=== PATIENT | female | born 1940 | race Caucasian/White ===

== ENCOUNTER 2019-10-13 10:33 | Inpatient (IN) ==
[2019-10-13] MEDS ORDERED: NS 1,000 ML IV ONE (11:03)
--- NOTE | 2019-10-13 11:05 | PROVIDER DOCUMENTATION ---
This chart was entered by Stephanie Sauceda Scribe, acting as scribe for Zeke Kaiser CRNP. HPI-General Adult - General Stated Complaint: Fall Time Seen by Provider: 10/13/19 10:38 Source: patient, EMS, skilled nursing records Allergies/Adverse Reactions: Patient Allergies Allergy/AdvReac Type Severity Reaction Status Date / Time cephalexin [From Keflex] Allergy Unknown Verified 10/13/19 11:03 Penicillins Allergy Unknown Verified 10/13/19 11:03 Home Medications: Home Medication List Medication Instructions Recorded Confirmed Last Taken Type Iron Polysaccharides Complex 2 cap PO BID 10/13/19 10/13/19 Unknown History [Iferex 150] Polyethylene Glycol 3350 [Miralax] 17 gm PO DAILY 10/13/19 10/13/19 10/13/19 07:00 History Sennosides [Senna] 1 tab PO DAILY 10/13/19 10/13/19 10/13/19 07:00 History Tretinoin/Emol 9/Skin Cleansr1 1 dose TOP BID 10/13/19 10/13/19 Unknown History [Tretin-X 0.025% Cream Comb Pck] - History of Present Illness -Gen Adult Nature of Presenting Problems: 78 y/o female presents to ED after fall onset this morning. EMS reports pt fell backwards from standing. Pt states she thinks she fell, but is unsure what happened. Pt has hx dementia and Parkinson's. Pt unsure if she hit her head or lost consciousness. Pt complains of R hip pain. Pt is alert and nontoxic. Location of Pain/Injury: reports: head, pelvis (Right hip). denies: none, face, mouth, neck, chest, upper extremity, hand(s), abdomen, back, genitalia, lower extremity, feet, upper body, lower body, generalized, other Pain Radiation: reports: no radiation. denies: arm(s), back, buttocks, chest, epigastric, feet, groin, jaw, flank (L), legs (lower), LLQ, LUQ, neck, periumbilical, flank (R), RLQ, RUQ, shoulder(s), scapula, scrotal, sternal notch, suprapubic, legs (upper), urethral, vaginal, other Quality of Pain: reports: aching. denies: cramping, pressure, tightness Severity: reports: moderate. denies: mild, severe Onset/Duration: reports: abrupt, this morning Timing: reports: still present. denies: improving, intermittent, getting worse Context/Activities at Onset: reports: light activity, recent trauma history. denies: none, moderate activity, vigorous activity, recent emotional stress, recent physical stress, possible bad food, cold exposure, eating, out of country travel, rest, sleep, sexual activity, other Modifying Factors: improves with: nothing Associated Symptoms: reports: headaches, joint pain (Right hip), syncope. denies: denies symptoms, anxiety, arm pain, back/neck pain, chest pain, constipation, cough, diaphoresis, diarrhea, dizziness, EENT symptoms, fatigue, fever/chills, genitourinary problems, heartburn, loss of appetite, malaise, muscle aches, sinus congestion/drainage, nausea, rash, seizure, shortness of breath, sensory/motor loss, pain with inspiration, swelling/mass in abdomen, vomiting, weakness, trouble walking, other Similar Symptoms Previously?: Yes Recently seen or treated by another doctor?: No Review of Systems - Adult - REVIEW OF SYSTEMS - ADULT Constitutional: reports: no symptoms reported Eyes: reports: no symptoms reported Ears, Nose, Mouth & Throat: reports: no symptoms reported Cardiovascular: reports: no symptoms reported Respiratory: reports: no symptoms reported Gastrointestinal: reports: no symptoms reported Genitourinary: reports: no symptoms reported Musculoskeletal: reports: see HPI, joint pain (Right hip). denies: back pain, muscle aches, neck pain Integumentary: reports: no symptoms reported Neurological: reports: see HPI, headache/migraines. denies: dizziness/vertigo, paresthesia, seizure, tremors Psychiatric: reports: no symptoms reported Past History - Adult - PAST MEDICAL HISTORY-ADULT Review of Records: reports: Old Records Reviewed, Nursing Assessment Review, Medications Reviewed, Social history reviewed & non-contributory. Major Childhood Illnesses: reports: denies history Cardiovascular: reports: A-Fib, hyperlipidemia Gastrointestinal: reports: GERD Neurological: reports: dementia, Parkinson's Other Conditions: reports: blindness - PRIOR SURGERIES/PROCEDURES Surgical/Procedure History: reports: hysterectomy, joint replacement (hip) - IMMUNIZATION STATUS Childhood Immunizations: See Nurse Assessment Flu Vaccine: See Nurse Assessment - FAMILY HISTORY Family History: reviewed, not pertinent - SOCIAL HISTORY Smoking: non-smoker Substance Use: none/never Alcohol Use Frequency: never Living Situation: family Physical Exam-General - PHYSICAL EXAM-ADULT Initial Vital Signs Reviewed: Yes - CONSTITUTIONAL General Appearance: alert, mild distress, thin, slow to respond. negative: anxious, obtunded, combative - EYES Eyes: PERRL/EOMI, pink conjunctivae. negative: conjuctival exudate, scleral icterus, subconjunctival hemorrhage - HEAD, EARS, NOSE, MOUTH & THROAT HENMT: normocephalic/atraumatic, moist mucous membranes. negative: angioedema, frontal tenderness, maxillary tenderness - NECK Neck: non-tender, full range of motion, supple, normal inspection - RESPIRATORY Respiratory: lungs clear, normal breath sounds - CARDIOVASCULAR Cardiovascular: normal peripheral pulses, regular rate, rhythm, no edema - GASTROINTESTINAL (ABDOMEN) Abdominal Exam: normal bowel sounds, non tender, soft - LYMPHATIC Lymphatic: no adenopathy - MUSCULOSKELETAL Back Exam: normal inspection, no CVA tenderness, no vertebral tenderness Extremity: tenderness (Right hip). negative: deformity, erythema, inflammation, swelling Peripheral Pulses: radial (R): 2+, radial (L): 2+ - SKIN Integumentary: normal color, normal turgor, warm/dry - NEUROLOGIC Neurologic: grossly normal, no motor/sensory deficits - PSYCHIATRIC Psych/Mental Status: oriented x 3. negative: anxious, paranoid, tearful Progress - PLAN OF CARE/RESULTS Progress/Plan/Lab Results: Vital Signs - 8 hr 10/13/19 10:38 Temperature 98.2 F Pulse Rate 74 Respiratory Rate 18 Blood Pressure 97/61 O2 Sat by Pulse Oximetry 96 Orders Category Date Time Status FSBS [Finger Stick Blood Sugar (ED)] DIRECTED Care 10/13/19 10:53 Completed [place] Cath Insertion ORDERED Care 10/13/19 11:51 Active Saline Loc NOW Care 10/13/19 10:53 Active CHEST-1 VIEW [RAD] Stat Exams 10/13/19 12:[address] HEAD/C-SPINE W/O CONTRAST [CT] Stat Exams 10/13/19 10:[address] LUMBAR SPINE W/O CONTRAST [CT] Stat Exams 10/13/19 10:[address] PELVIS W/O CONTRAST [CT] Stat Exams 10/13/19 10:57 Completed HIP W/PELVIS BILAT 2 VIEWS [RAD] Stat Exams 10/13/19 12:19 Ordered CBC WITH ELECTRONIC DIFF [HEME] Stat Lab 10/13/19 11:05 Completed CK PROFILE [SP CHEM] Stat Lab 10/13/19 11:05 Completed COMPREHENSIVE METABOLIC PANEL [CHEM] Stat Lab 10/13/19 11:05 Completed PROTIME WITH INR [COAG] Stat Lab 10/13/19 11:05 Completed PTT [COAG] Stat Lab 10/13/19 11:05 Completed TROPONIN T Stat Lab 10/13/19 11:05 Completed URINALYSIS W/POSS RFLX CULT [URINALYSIS] Stat Lab 10/13/19 10:54 Uncollected 0.9% Sodium Chloride Inj [Ns] 1,000 ml Med 10/13/19 11:03 Discontinued IV KVO mls/hr Morphine Med 10/13/19 11:51 Discontinued 2 mg IV NOW ONE Ondansetron [Zofran] Med 10/13/19 11:51 Discontinued 4 mg IV NOW ONE EKG [EKG] Stat Ther 10/13/19 10:53 Draft Laboratory Tests 10/13/19 10/13/19 10/13/19 11:05 11:05 11:05 WBC 7.49 RBC 4.20 Hgb 11.4 L Hct 36.9 L MCV 87.9 MCH 27.1 MCHC 30.9 L RDW Std Deviation 15.6 H Plt Count 330 MPV 9.0 Immature Gran % (Auto) 0.4 Neut % (Auto) 83.6 H Lymph % (Auto) 9.2 L [place] % (Auto) 5.9 Eos % (Auto) 0.5 Baso % (Auto) 0.4 Immature Gran # (Auto) 0.03 Neut # (Auto) 6.26 Lymph # (Auto) 0.69 L [place] # (Auto) 0.44 Eos # (Auto) 0.04 Baso # (Auto) 0.03 PT 13.1 INR 0.99 PTT (Actin FS) 30.4 Sodium 141 Potassium 4.6 Chloride 102 Carbon Dioxide 28 Anion Gap 11 BUN 18 Creatinine 0.8 Estimated GFR/1.73 m2 > 60 BUN/Creatinine Ratio 23 Glucose 98 POC Glucose Calculated Osmolality 283 Calcium 9.1 Total Bilirubin 0.19 L AST 16 ALT < 5 L Alkaline Phosphatase 143 H Creatine Kinase 51 Troponin T Total Protein 6.9 Albumin 3.9 Globulin 3.0 Albumin/Globulin Ratio 1.3 10/13/19 10/13/19 11:05 11:48 WBC RBC Hgb Hct MCV MCH MCHC RDW Std Deviation Plt Count MPV Immature Gran % (Auto) Neut % (Auto) Lymph % (Auto) [place] % (Auto) Eos % (Auto) Baso % (Auto) Immature Gran # (Auto) Neut # (Auto) Lymph # (Auto) [place] # (Auto) Eos # (Auto) Baso # (Auto) PT INR PTT (Actin FS) Sodium Potassium Chloride Carbon Dioxide Anion Gap BUN Creatinine Estimated GFR/1.73 m2 BUN/Creatinine Ratio Glucose POC Glucose 88 Calculated Osmolality Calcium Total Bilirubin AST ALT Alkaline Phosphatase Creatine Kinase Troponin T < 0.010 Total Protein Albumin Globulin Albumin/Globulin Ratio 1233- Dr. Newell at bedside for evaluation. Result Diagrams: 10/13/19 11:05 10/13/19 11:05 - EKG 1 Time of EKG reading by physician:: 11:47 EKG Read and Signed by:: Shireen Hyman EKG Interpretation (*Must complete 3 of following elements*): Abnormal Rate: 66 Rhythm: NSR [place]: normal QRS: other (septal infarct) VA Interval: normal ST Wave: non-specific ST changes - CT/MRI 1 CT Study: Cervical Spine, Head Impression: See EMR Report ([facility] - [address] [facility] [address] [place] [id number] [facility] - [address] [place] [address] Department of Imaging Patient: ADALID CHANEL Date: 10/13/19#: [id number] : 08/15/1941DM Status: PRE ERAcct#: [id number] Age/Sex: 78/FRoom/Bed: Loc: ED Ordering Physician: Zeke Kaiser Family Physician: Andrew Schaefer Reason for Procedure: Fall on blood thinners/hit head Signed EXAM: CT HEAD/C-SPINE W/O CONTRAST 10/13/2019 HISTORY: Fall on blood thinners/hit head TECHNIQUE: This exam was performed using automated exposure control, adjustment of mA or kV according to patient size, and/or use of iterative reconstruction technique. COMMENT: There is mild generalized cerebral atrophy. There is no evidence of mass effect, bleed, or abnormal extra-axial fluid collection. The visualized paranasal sinuses are clear. The calvarium is intact. Cervical spine: There may be fibrous union of the posterior elements of C1 with the spinous process of C2. There is degenerative disc disease at the C5-6 and C6-7 levels with uncovertebral arthropathy and anterior osteophytes. There is severe hypertrophic facet disease present on the right side at the C3-4 and C4-5 levels. No evidence of fracture or subluxation is present. IMPRESSION: No evidence of acute intracranial disease. Degenerative changes in the cervical spine as described. Electronical ly signed by Jeremy Acevedo 10/13/2019 11:38 AM 10/13/19 1138 Interpreting Physician: Jeremy Acevedo MD Dictated Date/Time: 10/13/19 1135 cc: Zeke Kaiser; Andrew Schaefer III, MD) 2 CT Study: Lumbar Spine Impression: See EMR Report (Patient: ADALID CHANEL Date: 10/13/19#: [id number] : 08/15/1941DM Status: [facility]#: [id number] Age/Sex: 78/FRoom/Bed: Loc: ED Ordering Physician: Zeke Kaiser Family Physician: Andrew Schaefer Reason for Procedure: Fall Signed EXAM: CT LUMBAR SPINE W/O CONTRAST 10/13/2019 HISTORY: Fall TECHNIQUE: This exam was performed using automated exposure control, adjustment of mA or kV according to patient size, and/or use of iterative reconstruction technique. COMMENT: There are no previous studies available for comparison. There is some subsidence of the upper endplate of the L2 vertebral body. This is of uncertain age. No evidence of retropulsed fragment is present and there is mild disc bulge at this level. There is also vacuum disc phenomenon at the L5-S1 level. There is no evidence of subluxation. At the L2-3 level there is no spinal or foraminal stenosis. There is mild disc bulge. At L3-4 there is mild disc bulge without evidence of spinal or foraminal stenosis. At L4-5 there is moderate disc bulge and ligamentum flavum hypertrophy inducing a mild degree of spinal stenosis. There is also severe facet arthropathy on the left at this level. At the L5-S1 level there is no evidence of spinal or foraminal stenosis. There is sclerosis in the left side of the vertebral body which is probably due to a bone island. IMPRESSION: Compression fracture of the upper endplate of L2 of uncertain age. No evidence of spinal stenosis at this level. Degenerative disc disease as described above with mild spinal stenosis at L4-5. Electronically signed by Jeremy Acevedo 10/13/2019 11:42 AM 10/13/19 1142 Interpreting Physician: Jeremy Acevedo MD Dictated Date/Time: 10/13/19 1138 cc: Zeke Kaiser; Andrew Schaefer III, MD) 3 CT Study: Pelvis Impression: See EMR Report ([facility] - [address] [place] [address] [address] [facility] - [address] [place] [address] Department of Imaging Patient: ADALID CHANEL Date: 10/13/19#: [id number] : 08/15/1941DM Status: REG ERAcct#: [id number] Age/Sex: 78/FRoom/Bed: Loc: ED Ordering Physician: Zeke Kaiser Family Physician: Andrew Schaefer Reason for Procedure: Fall with injury ___ Signed EXAM: CT PELVIS W/O CONTRAST 10/13/2019 HISTORY: Fall with injury TECHNIQUE: This exam was performed using automated exposure control, adjustment of mA or kV according to patient size, and/or use of iterative reconstruction technique. COMMENT: There are degenerative facet changes at the L4-5 level particularly on the left side and there is a bone island in the left side of L5. There is vacuum phenomenon at the L5-S1 disc space. There is an intertrochanteric fracture of the right femur. There is a comminuted fracture of the greater trochanter on the left. There is a soft tissue calcification in the left perineal region of uncertain significance. There is apparent constipation. IMPRESSION: Bilateral femoral fractures. Other nonacute findings as described above. Electronically signed by Jeremy Acevedo 10/13/2019 11:44 AM 10/13/19 1144 Interpreting Physician: Jeremy Acevedo MD Dictated Date/Time: 10/13/19 1142 cc: Zeke Kaiser; Andrew Schaefer III, MD) - CONSULTS/PCP/HOSPITALIST Notification #1 *Consult/PCP/Hospitalist*: Dr. Newell Time Discussed: 12:18 Reason/Comments: Consult Consult Disposition: Will see in ED, Admit (admit to hospitalist; order x-rays; Dr. Newell will fix tomorrow.) #2 Consult: Callie for hospitilist Time Discussed: 13:15 Reason/Comments: Admission Consult Disposition: Will see in ED, Admit Departure - Departure Date of Disposition Decision: 10/13/19 Time of Disposition Decision: 11:52 DIAGNOSIS: Bilateral femoral fractures Qualifiers: Encounter type: initial encounter Fracture type: closed Qualified Code(s): S72.91XA - Unspecified fracture of right femur, initial encounter for closed fracture Disposition: ADMITTED INPATIENT 09 Certified Medical Emergency: Emergent Condition: Stable Referrals and Follow-Ups: Andrew Schaefer III, MD [Primary Care Provider] - - Critical Care Note This patient required my direct & personal management of CC.: No Attestation - Physician/ TIFFANY Attestation Patient care was provided by Advanced Practice Provider:: Yes Advanced Practice Provider:: Zeke Kaiser Advanced Practice Provider documentation review:: The Mid-level provider documentation, treatment plan and medical decision making was reviewed by the physician who agrees with all treatment and medical decision making by the MLP. The physician spent face to face time with patient:: No Advanced Practice Provider documentation review:: Supervising physician onsite and consulted in the evaluation and care of this patient. The physician did not have a face to face encounter with the patient. This chart was documented by the indicated scribe, (Stephanie Sauceda Scribe) and accurately reflects the services I performed and decisions made by me, Zeke Kaiser CRNP, as attested by the provider's signature.
[2019-10-13 11:25] LABS: BASO# 0.03 X1000 (0.0-0.2); BASO% 0.4 % (0.0-0.8); EOS# 0.04 X1000 (0.0-0.7); EOS% 0.5 % (0.0-10.0); HEMATOCRIT 36.9 % (37.0-47.0); HEMOGLOBIN 11.4 g/dL (12.0-16.0); IMM GRAN# 0.03 X1000 (0.0-0.04); IMM GRAN% 0.4 % (0.0-0.5); LYMPH# 0.69 X1000 (1.2-3.4); LYMPH% 9.2 % (20.5-51.1); MCH 27.1 PG (27-31); MCHC 30.9 g/dL (33-37); MCV 87.9 FL (81-99); MONO# 0.44 X1000 (0.11-0.59); MONO% 5.9 % (1.7-9.3); NEUT# 6.26 X1000 (1.4-6.5); NEUT% 83.6 % (42.2-75.2); PLT 330 X1000 (130-400); RDW 15.6 % (11.5-14.5); WBC 7.49 X1000 (4.8-10.8)
[2019-10-13 11:29] LABS: INR 0.99; PROTIME 13.1 Seconds (11.0-16.0)
[2019-10-13 11:30] LABS: PTT 30.4 Seconds (22.3-41.8)
[2019-10-13 11:40] LABS: AGAP 11; ALB/GLOB RATIO 1.3; ALBUMIN 3.9 g/dL (3.5-5.0); ALKALINE PHOSPHATASE 143 U/L (32-104); BUN 18 mg/dL (8-22); CALCIUM 9.1 mg/dL (8.8-10.2); CHLORIDE 102 mmol/L (98-107); CK PROFILE 51 U/L (24-173); COSMO 283; CREATININE 0.8 mg/dL (0.5-0.9); ESTIMATED GFR > 60; GLUCOSE 98 mg/dL (70-104); GOT 16 U/L (10-30); GPT < 5 U/L (10-36); POTASSIUM 4.6 mmol/L (3.5-5.1); SODIUM 141 mmol/L (136-145); TCO2 28 mmol/L (25-35); TOTAL BILIRUBIN 0.19 mg/dL (0.20-1.00); TOTAL PROTEIN 6.9 g/dL (6.3-8.3)
--- NOTE | 2019-10-13 11:40 | Diag Imaging Result Doc PS360 ---
EXAM: CT HEAD/C-SPINE W/O CONTRAST 10/13/2019 HISTORY: Fall on blood thinners/hit head TECHNIQUE: This exam was performed using automated exposure control, adjustment of mA or kV according to patient size, and/or use of iterative reconstruction technique. COMMENT: There is mild generalized cerebral atrophy. There is no evidence of mass effect, bleed, or abnormal extra-axial fluid collection. The visualized paranasal sinuses are clear. The calvarium is intact. Cervical spine: There may be fibrous union of the posterior elements of C1 with the spinous process of C2. There is degenerative disc disease at the C5-6 and C6-7 levels with uncovertebral arthropathy and anterior osteophytes. There is severe hypertrophic facet disease present on the right side at the C3-4 and C4-5 levels. No evidence of fracture or subluxation is present. IMPRESSION: No evidence of acute intracranial disease. Degenerative changes in the cervical spine as described. Electronically signed by Jeremy Acevedo 10/13/2019 11:38 AM
--- NOTE | 2019-10-13 11:44 | Diag Imaging Result Doc PS360 ---
EXAM: CT LUMBAR SPINE W/O CONTRAST 10/13/2019 HISTORY: Fall TECHNIQUE: This exam was performed using automated exposure control, adjustment of mA or kV according to patient size, and/or use of iterative reconstruction technique. COMMENT: There are no previous studies available for comparison. There is some subsidence of the upper endplate of the L2 vertebral body. This is of uncertain age. No evidence of retropulsed fragment is present and there is mild disc bulge at this level. There is also vacuum disc phenomenon at the L5-S1 level. There is no evidence of subluxation. At the L2-3 level there is no spinal or foraminal stenosis. There is mild disc bulge. At L3-4 there is mild disc bulge without evidence of spinal or foraminal stenosis. At L4-5 there is moderate disc bulge and ligamentum flavum hypertrophy inducing a mild degree of spinal stenosis. There is also severe facet arthropathy on the left at this level. At the L5-S1 level there is no evidence of spinal or foraminal stenosis. There is sclerosis in the left side of the vertebral body which is probably due to a bone island. IMPRESSION: Compression fracture of the upper endplate of L2 of uncertain age. No evidence of spinal stenosis at this level. Degenerative disc disease as described above with mild spinal stenosis at L4-5. Electronically signed by Jeremy Acevedo 10/13/2019 11:42 AM
--- NOTE | 2019-10-13 11:46 | Diag Imaging Result Doc PS360 ---
EXAM: CT PELVIS W/O CONTRAST 10/13/2019 HISTORY: Fall with injury TECHNIQUE: This exam was performed using automated exposure control, adjustment of mA or kV according to patient size, and/or use of iterative reconstruction technique. COMMENT: There are degenerative facet changes at the L4-5 level particularly on the left side and there is a bone island in the left side of L5. There is vacuum phenomenon at the L5-S1 disc space. There is an intertrochanteric fracture of the right femur. There is a comminuted fracture of the greater trochanter on the left. There is a soft tissue calcification in the left perineal region of uncertain significance. There is apparent constipation. IMPRESSION: Bilateral femoral fractures. Other nonacute findings as described above. Electronically signed by Jeremy Acevedo 10/13/2019 11:44 AM
[2019-10-13] MEDS ORDERED: ZOFRAN IV ONE (11:51)
[2019-10-13] MEDS ORDERED: MORPHINE IV ONE (11:51)
--- NOTE | 2019-10-13 12:00 | EKG Report ---
Test Performed on : 10/13/2019 11:44:51 AM Test Reason : syncope Blood Pressure : / mmHG Vent. Rate : 066 BPM Atrial Rate : 066 BPM P-R Int : 144 ms QRS Dur : 074 ms QT Int : 412 ms P-R-T Axes : 055 -02 064 degrees QTc Int : 431 ms Normal sinus rhythm. Septal infarct , age undetermined Abnormal ECG No previous ECGs available Unconfirmed Result
[2019-10-13] MEDS ORDERED: TYLENOL PO PRN (12:59)
[2019-10-13] MEDS ORDERED: ZOFRAN IV PRN (12:59)
[2019-10-13] MEDS ORDERED: NORCO-7.5 PO PRN (12:59)
[2019-10-13] MEDS ORDERED: MORPHINE IV PRN ×2 (12:59→18:32)
--- NOTE | 2019-10-13 13:12 | Diag Imaging Result Doc PS360 ---
EXAM: HIP W/PELVIS BILAT 2 VIEWS 10/13/2019 HISTORY: Dr. Newell request TECHNIQUE: Left hip and AP pelvis three views COMMENT: There is a comminuted fracture of the left greater trochanter and intertrochanteric fracture of the right femur. There is a calcification in the left labia majora. IMPRESSION: Bilateral femoral fractures as described. Electronically signed by Jeremy Acevedo 10/13/2019 1:10 PM
--- NOTE | 2019-10-13 13:12 | Diag Imaging Result Doc PS360 ---
EXAM: CHEST-1 VIEW 10/13/2019 HISTORY: admit TECHNIQUE: AP chest COMMENT: There is no evidence of acute cardiac or pulmonary disease. There are no previous studies. IMPRESSION: No acute disease. Electronically signed by Jeremy Acevedo 10/13/2019 1:10 PM
[2019-10-13] MEDS: NS 1,000 ML IV SCH (13:29)
--- NOTE | 2019-10-13 13:29 | ORTHOPAEDICS CONSULTATION ---
DATE: 10/13/2019 REASON FOR CONSULTATION: Bilateral hip pain after fall. HISTORY OF PRESENT ILLNESS: Ms. Cazares is an 78-year-old female with a history of dementia, Parkinson's, and rheumatoid arthritis who had a fall in the alf sometime early this morning. She does have dementia and is not a good historian. She states she cannot remember how she fell or what the circumstances were. She does not remember losing consciousness or feeling dizzy. She does not recall hitting her head. She was found quickly after her fall from what she remembers. After her fall, she was brought to the [facility] Emergency Room. A CT of the pelvis revealed a right intertrochanteric fracture and a left comminuted fracture of the greater trochanter. Orthopedics has been consulted for management of the bilateral femoral fractures. PAST MEDICAL HISTORY: Again, the patient is not a good historian, but she does have a family member at the bedside. 1. Parkinson's. 2. Lewy body dementia. 3. Rheumatoid arthritis. PAST SURGICAL HISTORY: None. HOME MEDICATIONS: A home medication list has not been reconciled. The patient and family member both deny any blood thinners. We are waiting on a list to come over from the alf. ALLERGIES: 1. Cephalexin. 2. Penicillins. REVIEW OF SYSTEMS: A 10 point review of systems was difficult to complete. She has dementia but currently she is only complaining of the bilateral hip pain. SOCIAL HISTORY: She does live in a detention facility. She denies tobacco, alcohol, or illicit drug use. PHYSICAL EXAMINATION: Current Vital Signs: Her temperature is 98 degrees, her pulse is 67, respirations are 20, blood pressure is 124/77, and she is 96% on room air. General: This is a frail appearing 78-year-old female in no acute distress. Neurological: She is answering some questions appropriately, she is unable answer others. She is alert to self and location. She has no obvious focal deficits. HEENT: Head is atraumatic, normocephalic. Pupils are equal, round, reactive to light. Cardiovascular: Regular rate and rhythm. No edema to extremities. Pulmonary: Breathing is even unlabored with equal chest rise and expansion. Abdomen: Nondistended. Nontender. Extremities: The right lower extremity is shortened and externally rotated. She does have some tenderness to palpation over the hip. She has pain when she tries to move the hip. She has good sensation to the foot. She has a 2+ pedal pulse. There are no skin ulcerations or abrasions. Left lower extremity exam she does have some tenderness to palpation over the greater trochanter on this side. She is able to move the hip a little easier on that side. She has good sensation lower extremity 2+ pedal pulse. No skin ulcerations or abrasions. Right upper extremity exam, she has no tenderness to palpation, but she does have a small skin tear with ecchymosis to the right elbow. Denies tenderness to palpation to any other extremity. IMAGING: A pelvis CT reviewed and interpreted by Dr. Newell does reveal a right intertrochanteric femur fracture. On the left side she does have a comminuted but nondisplaced fracture of the greater trochanter. LABORATORY DATA: Her white count 7.49, hemoglobin and hematocrit 11.4, 36.9, platelet count is 330,000. Her INR is 0.99. Her BUN and creatinine is 18 and 0.8. ASSESSMENT: 1. Right intertrochanteric femur fracture. 2. Left greater trochanter fracture, nondisplaced. PLAN: The left greater trochanter fracture can be treated nonoperatively. As far as this right side, we will need to pursue surgical intervention. We will plan for a right trochanteric femoral nailing. She did eat breakfast this morning. As far as we can tell, she is not on any blood thinners but we are waiting for a list from the alf. As long as we find she is not on any blood thinners and there is no medical need to delay surgery, we will plan on doing this tomorrow morning. We will make her NPO at midnight. We will put a Pisano in today. We will do vancomycin inhalation therapy teacher as she is allergic to Ancef and penicillins. We are going to do Kinney's traction to help with her pain on the right side. We will consult the hospitalist to make sure she is cleared for surgical intervention for tomorrow morning. Thank you for the consultation. Dictated by KENNETH Ball for Kenney Newell MD cc: KENNETH Ball MD
[2019-10-13 15:15] LABS: URINE SOURCE CATH
[2019-10-13 15:23] LABS: BILIRUBIN URINE NEGATIVE (NEGATIVE); BLOOD URINE NEGATIVE (NEGATIVE); COLOR YELLOW; GLUCOSE URINE NEGATIVE (NEGATIVE); KETONE URINE TRACE mg/dL (NEGATIVE); LEUKOCYTES URINE NEGATIVE (NEGATIVE); NITRITE URINE NEGATIVE (NEGATIVE); PROTEIN URINE NEGATIVE (NEGATIVE); TURBIDITY URINE CLEAR (CLEAR); UROBILINOGEN URINE NORMAL (NORMAL)
[2019-10-13 15:24] LABS: UR EPITHELIAL CELLS <10 /HPF (<10); URINE BACTERIA NEGATIVE /HPF; URINE RBC <10 /HPF (<10); URINE WBC <10 /HPF (<10)
--- NOTE | 2019-10-13 15:55 | HISTORY AND PHYSICAL ---
PRIMARY CARE PROVIDER: Andrew Schaefer MD CHIEF COMPLAINT: Fall with hip pain. HISTORY OF PRESENT ILLNESS: Ms. Nitza Cazares is an 79-year-old female with a medical history of dementia, Alzheimer's, arthritis, Parkinson's, who apparently had a fall back in June. At that time, had a displaced fracture of the greater trochanteric femur on the left, which is old. Apparently, it was not severe enough and she did not have surgery. She was seen at [facility], and they elected not to have surgery. She went to rehab and today was standing, apparently they cannot keep her from being overly active. She was standing, brushing her teeth bit, had dropped her partials and was bending down to get them and fell and then fractured her right femur, so now she has bilateral fractures, with the right one being new. Plan is for surgery tomorrow morning. PAST MEDICAL HISTORY: 1. Parkinson's. 2. Lewy body dementia or Alzheimer's. 3. Rheumatoid arthritis and osteoarthritis. 4. Dysphagia. 5. Hyperlipidemia. 6. Old left femur fracture that was not repaired. SURGICAL HISTORY: Hysterectomy. SOCIAL HISTORY: She used to smoke. She quit at least 10 or more years ago. Occasionally drinks wine. No illicit drug use. She is currently at [facility]. FAMILY HISTORY: Unknown. ALLERGIES: Cephalexin and penicillin. HOME MEDICATIONS: 1. Artificial Tears t.i.d. 2. Carbidopa/levodopa extended release 25 mg-100 one tablet p.o. 4 times a day. 3. Iferex 300 mg p.o. twice a day. 4. MiraLAX 17 grams p.o. daily. 5. Senokot 1 tablet p.o. daily. 6. Tretin-X 0.025% cream topical twice a day to the face. 7. Tylenol 650 mg p.o. every 4 hours p.r.n. 8. Vitamin C 50 mg p.o. twice daily. 9. Diclofenac topical gel 4 times a day. REVIEW OF SYSTEMS: Only complains of hip pain. Otherwise, no other complaints. PHYSICAL EXAMINATION: VITAL SIGNS: Temperature 98 degrees, heart rate 73, respiratory rate 15, blood pressure 127/77, and O2 saturation 94% on room air. GENERAL: Ms. Nitza Cazares is an 79-year-old female. She is in no acute distress, but she does not answer a whole lot of questions either. HEENT: Atraumatic, normocephalic. Pupils equal, round, reactive to light. Extraocular movements intact. Mucous membranes are dry. NECK: Trachea midline. CARDIOVASCULAR: S1, S2. Regular rate and rhythm. No rubs, gallops, murmurs. Trace lower extremity edema. There are +2 dorsalis and radial pulses. Negative JVD or carotid bruits. PULMONARY: Clear to auscultate. Bilateral breath sounds. No accessory muscle use or work of breathing noted. GASTROINTESTINAL: Soft, nontender, nondistended. Positive bowel sounds x4. EXTREMITIES: Moves all extremities equally except for the lower extremities, as they are fractured and there but the upper extremities have 4/5 strength with full range of motion. NEUROLOGIC: Oriented to name only. Follows commands. Sensory is intact. SKIN: Warm, dry, intact. LABORATORY DATA: White blood cells 7000, hemoglobin 11, hematocrit 36, platelet count 330,000. INR 0.9, PTT is 30.4. Sodium 141, potassium 4.6, BUN 18, creatinine 0.8, glucose 98, calcium 9.1 bilirubin 0.19, AST 16, ALT less than 5. CK 51, troponin less than 0.01. Albumin 3.9. Urinalysis trace ketones. IMAGING: EKG, normal sinus rhythm, rate 66, QTc 431. Head and cervical spine CT, no evidence of acute findings. There is degenerative disk disease. Lumbar spine CT, compression fracture of the upper endplate of the L2, uncertain age. No spinal stenosis, but there is spinal stenosis at the L4-L5. Pelvic CT, bilateral femoral fractures. Chest x-ray, no acute disease. Hip and pelvic x-ray, bilateral femoral fractures. ASSESSMENT AND PLAN: 1. Bilateral femoral fractures. The left one was back in June, the right one was today. Dr. Newell has been consulted. Their plan is for surgery tomorrow. Morphine for pain control. Pisano catheter placed. 2. Parkinson's. We will continue home medication for that. 3. Alzheimer dementia. 4. Hyperlipidemia. No medications for that. 5. Deep venous thrombosis prophylaxis. Sequential compression devices for now. Dictated by KENNETH Villalpando for Kendrick Howe MD cc: KENNETH Villalpando MD I agree with most components of history, physical, assessment and plan. A separate addendum has been dictated. MTDD
[2019-10-13] MEDS: SINEMET CR 25/100 PO SCH ×2 (16:34→21:11)
[2019-10-13] MEDS: TEARISOL OPH SOLUTION BOTH EYES SCH ×2 (16:46→21:13)
[2019-10-13] MEDS: VOLTAREN 1% GEL TOP SCH (16:47)
--- NOTE | 2019-10-13 20:41 | HISTORY AND PHYSICAL ---
ADDENDUM: This is an addendum to the history and physical dictated by the nurse practitioner. I agree with most components of the history, physical, assessment and plan In brief, Ms. Cazares is an 79-year-old lady with previous history of dementia, Parkinson disease, and recently diagnosed left femoral greater trochanteric fracture when she was at [facility] because of recurrent falls, and was discharged to rehab. She comes in with chief complaints of another fall episode, the circumstances of which are not entirely clear; however, the patient states that she fell down and hit the floor, and she fell on her back. She says that she was brought to the emergency room. At the same time she was found to have right- sided femoral intertrochanteric fracture, so the orthopedic team was consulted and they are planning surgery tomorrow. The hospitalist team has been consulted for medical management and was requested to admit the patient. At the time of my evaluation, the patient does not appear in acute distress except complains of pain. PHYSICAL EXAMINATION: VITAL SIGNS: Temperature 98.1 degrees, pulse 75, respiratory rate 16, blood pressure 160/70. She is saturating 94% on room air. GENERAL: Not in acute distress. HEENT: Oral cavity is moist. LUNGS: Air entry bilaterally equal. No wheeze, rhonchi or crackles. CARDIOVASCULAR: S1, S2 normal. No murmur, rub or gallop. ABDOMEN: Soft, scaphoid, nontender. Tympanic to percussion. There is no suprapubic tenderness. EXTREMITIES: On lower extremity examination, her right lower extremity is shortened and externally rotated. She has intact dorsalis pedis, posterior tibial and popliteal pulses bilaterally. She is able to wiggle her toes, both lower extremities. NEUROLOGIC: She is alert. She is oriented to herself. She does have memory impairment. Her daughters are at bedside. LABORATORY DATA: Labs suggestive of hemoglobin of 11.4, platelets 330,000. BUN of 18, creatinine 0.8. Elevated alkaline phosphatase, likely in the setting of bone fracture. No microbiology. DIAGNOSTIC DATA: Hip/pelvis x-ray had bilateral femoral fractures. ASSESSMENT AND PLAN: 1. Comminuted fracture of the greater trochanter on the left and intertrochanteric fracture of the right femur. Continue to monitor CBC. Continue gentle intravenous fluid resuscitation. Continue pain management with acetaminophen and morphine as needed. Orthopedic team has been consulted, and is planning surgical intervention with right trochanteric femoral nailing tomorrow. 2. Parkinson disease and dementia. I will resume her home medications. 3. Disposition: Continue to monitor the patient inside the hospital. Plan of care discussed with the patient and her daughter at bedside. Their questions have been satisfactorily answered. cc: Kendrick Howe MD
[2019-10-13] MEDS ORDERED: NIFEREX PO SCH (21:00)
[2019-10-13] MEDS: ICAR-C PO SCH (21:11)
[2019-10-14] MEDS: VOLTAREN 1% GEL TOP SCH ×6 (03:05→23:57)
[2019-10-14] MEDS: NS 1,000 ML IV SCH (03:05)
[2019-10-14] MEDS: PATIENT'S OWN MED PO SCH ×3 (03:06→21:25)
[2019-10-14] MEDS: PATIENT'S OWN MED TOP SCH ×3 (03:07→21:25)
[2019-10-14 06:52] LABS: INR 1.06; PROTIME 13.9 Seconds (11.0-16.0); PTT 35.3 Seconds (22.3-41.8)
[2019-10-14] MEDS ORDERED: VANCOMYCIN 1 GM/NS 0 GM/0 ML IVPB ONE (06:55)
[2019-10-14] MEDS ORDERED: VANCOMYCIN 1 GM/NS 1 GM/250 ML IVPB IV ONE (07:00)
[2019-10-14 07:09] LABS: AGAP 14; ALB/GLOB RATIO 1.2; ALBUMIN 3.4 g/dL (3.5-5.0); ALKALINE PHOSPHATASE 126 U/L (32-104); BASO# 0.02 X1000 (0.0-0.2); BASO% 0.3 % (0.0-0.8); BUN 13 mg/dL (8-22); CALCIUM 8.6 mg/dL (8.8-10.2); CHLORIDE 103 mmol/L (98-107); COSMO 277; CREATININE 0.6 mg/dL (0.5-0.9); EOS# 0.12 X1000 (0.0-0.7); EOS% 1.9 % (0.0-10.0); ESTIMATED GFR > 60; GLUCOSE 88 mg/dL (70-104); GOT 15 U/L (10-30); GPT < 5 U/L (10-36); HEMATOCRIT 35.1 % (37.0-47.0); HEMOGLOBIN 10.9 g/dL (12.0-16.0); IMM GRAN# 0.02 X1000 (0.0-0.04); IMM GRAN% 0.3 % (0.0-0.5); LYMPH# 0.76 X1000 (1.2-3.4); LYMPH% 11.7 % (20.5-51.1); MCH 27.4 PG (27-31); MCHC 31.1 g/dL (33-37); MCV 88.2 FL (81-99); MONO# 0.58 X1000 (0.11-0.59); NEUT# 4.98 X1000 (1.4-6.5); NEUT% 76.8 % (42.2-75.2); PLT 280 X1000 (130-400); POTASSIUM 4.2 mmol/L (3.5-5.1); RBC 3.98 XMIL (4.2-5.4); RDW 15.4 % (11.5-14.5); SODIUM 139 mmol/L (136-145); TCO2 22 mmol/L (25-35); TOTAL BILIRUBIN 0.35 mg/dL (0.20-1.00); TOTAL PROTEIN 6.3 g/dL (6.3-8.3); WBC 6.48 X1000 (4.8-10.8)
[2019-10-14] MEDS ORDERED: DIPRIVAN 1% ONE (07:22)
[2019-10-14] MEDS ORDERED: FENTANYL ONE (07:24)
[2019-10-14] MEDS: SENOKOT PO SCH (08:43)
[2019-10-14] MEDS: MIRALAX PO SCH (08:43)
[2019-10-14] MEDS: SINEMET CR 25/100 PO SCH ×4 (08:43→21:24)
[2019-10-14] MEDS: ICAR-C PO SCH (08:44)
[2019-10-14] MEDS: TEARISOL OPH SOLUTION BOTH EYES SCH ×3 (08:45→20:32)
[2019-10-14] MEDS: MORPHINE ONE ×2 (09:16→09:19)
--- NOTE | 2019-10-14 09:47 | OPERATIVE NOTE ---
PROCEDURE DATE: 10/14/2019 PREOPERATIVE DIAGNOSIS: Right intertrochanteric hip fracture. POSTOPERATIVE DIAGNOSIS: Right intertrochanteric hip fracture. PROCEDURE: Right long trochanteric fixation nail size 360 mm with a 95 mm helical blade and a 44 mm length 5.0 locking screw distally. ANESTHESIA: Spinal. SURGEON: Kenney Newell MD. COMPLICATIONS: None. BLOOD LOSS: Minimal. DESCRIPTION OF PROCEDURE IN DETAIL: Patient brought to the operative suite and placed in supine position. After successful administration of general anesthesia, patient was placed on the OSI table in the usual position for right hip. The right hip was prepped and draped in the usual sterile fashion. A longitudinal incision made proximal to the tip of the greater trochanter. A guide pin was placed in center of the femoral canal. It was reamed to 13 mm. It was measured to 360 mm. A 360 mm nail was then driven in place through a stab incision laterally. A guide pin was placed in the center of the femoral head on AP and lateral images. It was reamed and measured at 95 mm. A 95 mm helical blade was driven into place and locked proximally and then released to allow for compression, and the proximal guide was then removed. Traction was released and then through stab incisions laterally, the distal locking screws were placed using the perfect manzanita technique, 40 mm proximally and 44 mm distally. Excellent reduction of the fracture was obtained on AP and lateral images. The placement of the hardware was excellent as well. The wounds were copiously irrigated. Skin edge approximated with 2-0 Vicryl. Skin was closed with devon and a sterile dressing applied. The patient tolerated the procedure well without complications. At the end of the procedure, all counts correct x2. The patient was transferred to the recovery room in stable condition. cc: Kenney Newell MD
[2019-10-14] MEDS ORDERED: ZOFRAN IV PRN (10:16)
[2019-10-14] MEDS ORDERED: HALDOL IV PRN (10:30)
[2019-10-14] MEDS ORDERED: NS 1,000 ML IV SCH ×2 (10:30→23:00)
[2019-10-14] MEDS: MORPHINE IV PRN ×2 (11:47→16:16)
[2019-10-14] MEDS: TYLENOL PO SCH ×3 (11:54→20:48)
--- NOTE | 2019-10-14 12:26 | EKG Report ---
Test Performed on : 10/14/2019 06:11:04 AM Test Reason : preop ekg Blood Pressure : / mmHG Vent. Rate : 078 BPM Atrial Rate : 078 BPM P-R Int : 126 ms QRS Dur : 076 ms QT Int : 382 ms P-R-T Axes : 040 -09 047 degrees QTc Int : 435 ms Normal sinus rhythm. with sinus arrhythmia. Normal ECG When compared with ECG of 13-OCT-2019 11:44, (Unconfirmed) Criteria for Septal infarct are no longer present Confirmed by Carlos ZELAYA, Anthony Chandra ([id number]) on 10/16/2019 9:28:06 AM
--- NOTE | 2019-10-14 19:34 | PROGRESS NOTE ---
DATE: 10/14/2019 INTERVAL HISTORY: No acute events overnight. SUBJECTIVE: Ms. Cazares is currently sleepy. She underwent right-sided trochanteric femoral nailing, which she tolerated well. She has not eaten anything as such, and has been sleepy throughout the day. Her daughter is at bedside. OBJECTIVE: Vital Signs: Temperature 98.3, pulse 119, respiratory rate 19, blood pressure 170/60, saturating 96% on nasal cannula. Bedside rhythm appears normal sinus. LABS: Show a hemoglobin of 10.9, platelets of 280,000. Electrolytes are normal. Microbiology: No new data. OPERATIVE NOTE: The patient underwent right long trochanteric fixation, nail size 360 mm with a 95 mm helical blade and a 44 mm length/5 locking screw distally. ASSESSMENT AND PLAN: 1. Comminuted fracture of the greater trochanter on the left, managed nonoperatively. 2. Intertrochanteric fracture of right femur, status post right trochanteric femoral nailing. Today is postoperative day 0. Monitor CBC. Continue gentle intravenous fluids. Continue pain management with oxycodone and morphine as needed. 3. Start enoxaparin for deep venous thrombosis prophylaxis tomorrow. 4. Parkinson disease and dementia. Resume home Parkinson medications. DISPOSITION: Continue to monitor patient inside the hospital. Plan of care discussed with the patient's daughter at bedside. Her questions have been answered. cc: Kendrick Howe MD
[2019-10-14] MEDS ORDERED: VANCOMYCIN 1 GM/NS 1 GM/250 ML IVPB IV SCH (20:00)
[2019-10-14] MEDS: COLACE PO SCH (21:23)
[2019-10-15] MEDS: TYLENOL PO SCH ×3 (02:30→11:10)
[2019-10-15] MEDS: OXY IR PO PRN ×2 (03:22→11:00)
[2019-10-15] MEDS: LOVENOX SUBQ SCH (05:54)
[2019-10-15 07:10] LABS: BASO# 0.02 X1000 (0.0-0.2); BASO% 0.3 % (0.0-0.8); EOS# 0.35 X1000 (0.0-0.7); EOS% 4.8 % (0.0-10.0); HEMOGLOBIN 8.8 g/dL (12.0-16.0); IMM GRAN# 0.02 X1000 (0.0-0.04); IMM GRAN% 0.3 % (0.0-0.5); LYMPH% 9.6 % (20.5-51.1); MCH 26.8 PG (27-31); MCHC 30.3 g/dL (33-37); MCV 88.4 FL (81-99); MONO# 0.54 X1000 (0.11-0.59); MONO% 7.4 % (1.7-9.3); MPV 8.9 FL (7.4-10.4); NEUT# 5.67 X1000 (1.4-6.5); NEUT% 77.6 % (42.2-75.2); PLT 220 X1000 (130-400); RBC 3.28 XMIL (4.2-5.4); RDW 14.9 % (11.5-14.5)
[2019-10-15 07:27] LABS: AGAP 11; ALBUMIN 2.9 g/dL (3.5-5.0); ALKALINE PHOSPHATASE 105 U/L (32-104); BUN 13 mg/dL (8-22); CALCIUM 7.9 mg/dL (8.8-10.2); CHLORIDE 104 mmol/L (98-107); COSMO 272; CREATININE 0.6 mg/dL (0.5-0.9); ESTIMATED GFR > 60; GLUCOSE 91 mg/dL (70-104); GOT 18 U/L (10-30); GPT < 5 U/L (10-36); MAGNESIUM 1.9 mg/dL (1.5-2.7); SODIUM 136 mmol/L (136-145); TCO2 21 mmol/L (25-35); TOTAL BILIRUBIN 0.41 mg/dL (0.20-1.00); TOTAL PROTEIN 5.7 g/dL (6.3-8.3)
--- NOTE | 2019-10-15 09:58 | ORTHOPAEDICS PROGRESS NOTE ---
DATE: 10/15/2019 SUBJECTIVE: Nitza Cazares is an 79-year-old female who is postoperative day 1 from a right trochanteric fixation nail placement. She is resting comfortably. Somewhat agitated, has been trying to get out of her bed. OBJECTIVE: She is a well-developed, well-nourished female. She is alert, oriented, and cooperative with the exam. Her hemoglobin is 8.8, her hematocrit is 29. Her dressing is clean, dry, intact. Her calves were soft. She can flex and extend her toes. Has brisk capillary refill. Intact sensation to light touch. ASSESSMENT: Stable right trochanteric fixation nail. PLAN: She can begin physical therapy. She will likely go to rehab the first part of the week. cc: Kenney Newell MD
[2019-10-15] MEDS: MIRALAX PO SCH (11:06)
[2019-10-15] MEDS: TEARISOL OPH SOLUTION BOTH EYES SCH ×3 (11:09→23:14)
[2019-10-15] MEDS: FERROUS SULFATE PO SCH (11:10)
[2019-10-15] MEDS: SENOKOT PO SCH (11:10)
[2019-10-15] MEDS: SINEMET CR 25/100 PO SCH ×3 (11:10→23:13)
[2019-10-15] MEDS: PATIENT'S OWN MED PO SCH ×2 (11:14→23:13)
[2019-10-15] MEDS ORDERED: VANCOMYCIN IV PER PHARMACY MISC SCH (16:45)
[2019-10-15] MEDS: PATIENT'S OWN MED TOP SCH ×2 (16:52→23:13)
[2019-10-15] MEDS: VOLTAREN 1% GEL TOP SCH ×4 (16:52→23:14)
[2019-10-15] MEDS: OFIRMEV 1000 MG/ISOTONIC SOLN 1,000 MG/100 ML BOTTLE IV PRN (17:07)
--- NOTE | 2019-10-15 17:08 | Diag Imaging Result Doc PS360 ---
EXAM: CHEST-PORTABLE 10/15/2019 HISTORY: Rule out pneumonia TECHNIQUE: AP portable at 1701 COMMENT: There is opacification left lower lobe which was not present on 10/13/2019. IMPRESSION: Left lower lobe pneumonia. Electronically signed by Jeremy Acevedo 10/15/2019 5:05 PM
[2019-10-15 17:38] LABS: URINE SOURCE CLEAN CATCH
[2019-10-15 17:41] LABS: BILIRUBIN URINE NEGATIVE (NEGATIVE); BLOOD URINE SMALL (NEGATIVE); COLOR YELLOW; GLUCOSE URINE NEGATIVE (NEGATIVE); KETONE URINE 20 mg/dL (NEGATIVE); LEUKOCYTES URINE NEGATIVE (NEGATIVE); NITRITE URINE NEGATIVE (NEGATIVE); PH URINE 5.5; PROTEIN URINE TRACE mg/dL (NEGATIVE); SP GRAVITY URINE 1.022; TURBIDITY URINE CLEAR (CLEAR); UR EPITHELIAL CELLS <10 /HPF (<10); URINE BACTERIA NEGATIVE /HPF; URINE RBC <10 /HPF (<10); URINE WBC <10 /HPF (<10); UROBILINOGEN URINE NORMAL (NORMAL)
[2019-10-15] MEDS: AZACTAM 1 GM in NS 50 ML IV SCH (18:06)
--- NOTE | 2019-10-15 18:34 | PROGRESS NOTE ---
DATE: 10/15/2019 INTERVAL HISTORY: No acute events overnight except she did have episode of fever with temperature of 101.8 degrees. Since then she has not had any fever episode, though she is on scheduled dose of Tylenol. In the morning time, she is pretty much drowsy. She appears to have nightmares. Daughter is at bedside. VITALS: Temperature 98.4 degrees, pulse 80, respiratory rate 14, blood pressure 110/47, saturating 90% on room air. There was an episode where her saturation was only 85, so she was repositioned and saturation increased to 95%. PHYSICAL EXAMINATION: She keeps her eyes closed and does not engage in any conversation meaningfully. Oral: She does not allow examination of oral cavity and eyes and keeps her mouth and eyes shut. Lungs: Air entry appears bilaterally equal. No wheeze, rhonchi, crackles. S1, not tachycardic. No murmur, rub, or gallop. Abdomen: Soft, nontender. She has a lateral thigh wound. She does not have any urine catheter. It came out yesterday and has not been reintroduced. LABS: Suggestive of acute blood loss anemia, not requiring transfusion. Normal electrolytes. No microbiological or no new imaging data. ASSESSMENT AND PLAN: 1. Comminuted fracture of greater trochanter on the left, managed nonoperatively. 2. Intertrochanteric fracture of the right femur, status post right trochanteric femoral nailing. Today is postoperative day 1. Continue gentle intravenous fluids until the patient's oral intake improves, pain management with tramadol and enoxaparin for DVT prophylaxis. I will stop her morphine as well as oxycodone as they appear to make her too drowsy. 3. Fever and episode of tachycardia. Sepsis is certainly of concern. She has not had fever during daytime. If she develops fever again, I will start her on broad-spectrum antibiotics and I will get a chest x-ray and urinalysis. Considering she is on scheduled dose of acetaminophen, she may not develop fever. However, I will closely monitor her. 4. Parkinson's disease and dementia. Continue her home medications, carbidopa and levodopa. 5. Acute encephalopathy. This is likely hospital-acquired delirium with her baseline history of dementia. DISPOSITION: Monitor patient inside the hospital. Plan of care discussed with the patient's daughter at bedside. Her questions have been answered. cc: Kendrick Howe MD
[2019-10-15] MEDS: COLACE PO SCH (23:12)
[2019-10-16] MEDS: AZACTAM 1 GM in NS 50 ML IV SCH ×3 (02:25→19:18)
[2019-10-16] MEDS: VANCOMYCIN 1 GM/NS 1 GM/250 ML IVPB IV SCH (03:03)
[2019-10-16] MEDS: LOVENOX SUBQ SCH (05:28)
[2019-10-16 07:36] LABS: BASO# 0.02 X1000 (0.0-0.2); BASO% 0.3 % (0.0-0.8); EOS# 0.32 X1000 (0.0-0.7); EOS% 4.2 % (0.0-10.0); HEMATOCRIT 27.5 % (37.0-47.0); HEMOGLOBIN 8.4 g/dL (12.0-16.0); IMM GRAN# 0.05 X1000 (0.0-0.04); IMM GRAN% 0.7 % (0.0-0.5); LYMPH# 0.76 X1000 (1.2-3.4); MCH 27.1 PG (27-31); MCHC 30.5 g/dL (33-37); MCV 88.7 FL (81-99); MONO# 0.45 X1000 (0.11-0.59); MONO% 5.9 % (1.7-9.3); MPV 8.9 FL (7.4-10.4); NEUT# 5.98 X1000 (1.4-6.5); NEUT% 78.9 % (42.2-75.2); PLT 228 X1000 (130-400); RDW 14.9 % (11.5-14.5); WBC 7.58 X1000 (4.8-10.8)
[2019-10-16 08:10] LABS: AGAP 14; ALB/GLOB RATIO 0.9; ALBUMIN 2.6 g/dL (3.5-5.0); ALKALINE PHOSPHATASE 98 U/L (32-104); BUN 12 mg/dL (8-22); CALCIUM 7.7 mg/dL (8.8-10.2); CHLORIDE 106 mmol/L (98-107); COSMO 276; CREATININE 0.5 mg/dL (0.5-0.9); ESTIMATED GFR > 60; GLUCOSE 80 mg/dL (70-104); GOT 18 U/L (10-30); GPT 13 U/L (10-36); MAGNESIUM 1.9 mg/dL (1.5-2.7); POTASSIUM 3.5 mmol/L (3.5-5.1); SODIUM 139 mmol/L (136-145); TCO2 19 mmol/L (25-35); TOTAL BILIRUBIN 0.28 mg/dL (0.20-1.00); TOTAL PROTEIN 5.4 g/dL (6.3-8.3)
[2019-10-16] MEDS ORDERED: PERIDEX MT SCH (09:00)
--- NOTE | 2019-10-16 09:30 | ORTHOPAEDICS CONSULTATION ---
DATE: 10/16/2019 SUBJECTIVE: Ms. Cazares is an 79-year-old female who is postop day 2 from right trochanteric fixation nail placement. She is resting comfortably in bed at this time. Her niece is at bedside. She is not agitated at this time though she has had some difficulties with this while she has been in the hospital. She is very cooperative on today's exam. She does not have any complaints at this time. OBJECTIVE: She is resting in bed comfortably at this time in no acute distress. Her dressings to her wrap incisions are clean, dry, and intact with no surrounding redness. There is also no drainage on the dressing. Her calves are soft at this time. She can dorsiflex and plantar flex her right foot without difficulty. She is able to flex and extend her toes. She does have bilateral VIRA hose in place. She has a brisk cap refill and her sensation is intact distally. ASSESSMENT: Postop day 2, right trochanteric fixation nail placement. PLAN: She has begun physical therapy. She will likely go to rehab the first part of the week. This was discussed with her niece who is at the bedside at this time. Dictated by KENNETH Bishop for Kenney Newell MD cc: Kenney Newell MD [facility]
[2019-10-16] MEDS: MIRALAX PO SCH (10:34)
[2019-10-16] MEDS: FERROUS SULFATE PO SCH (10:34)
[2019-10-16] MEDS: PATIENT'S OWN MED TOP SCH (10:35)
[2019-10-16] MEDS: SINEMET CR 25/100 PO SCH ×4 (10:35→21:37)
[2019-10-16] MEDS: SENOKOT PO SCH (10:35)
[2019-10-16] MEDS: PATIENT'S OWN MED PO SCH (10:35)
[2019-10-16] MEDS: TEARISOL OPH SOLUTION BOTH EYES SCH ×3 (10:36→21:37)
[2019-10-16] MEDS: VOLTAREN 1% GEL TOP SCH ×3 (10:36→17:41)
[2019-10-16] MEDS: ULTRAM PO PRN (16:18)
[2019-10-16] MEDS: MILK OF MAGNESIA PO PRN (16:20)
--- NOTE | 2019-10-16 19:41 | PROGRESS NOTE ---
DATE: 10/16/2019 INTERVAL HISTORY: No acute events overnight. She has not had anymore fever episodes. SUBJECTIVE: Ms. Cazares denies any complaints and her daughter is currently at bedside. Ms. Cazares has been more awake and alert today. VITALS: Temperature 99.4 degrees, pulse 83, respiratory rate 14, blood pressure 125/53, saturating 93% on 2 L nasal cannula. PHYSICAL EXAMINATION: General: Not in acute distress. HEENT: Oral cavity is moist. Lungs: Air entry bilaterally equal, except left infra-axillary region where it is decreased with inspiratory crackles. Heart: S1-S2 normal. No murmur or gallop. Abdomen: Soft, nontender. Extremities: No lower extremity edema. She has right-sided lateral thigh wounds, which are dressed. She is able to wiggle her toes. Intact popliteal and dorsalis pedis pulses bilaterally. Neurologic: She is alert. She is answering most questions appropriately. LABS: Suggestive of normocytic anemia, normal platelet count, normal electrolytes. Her hemoglobin has been stable. Blood culture has been in lab. ASSESSMENT AND PLAN: 1. Comminuted fracture of greater trochanter on the left, managed nonoperatively. 2. Intertrochanteric fracture of right femur, status post right trochanteric femoral nailing. Today is postoperative day 2. Continue pain management with tramadol as needed and enoxaparin for deep vein thrombosis prophylaxis. Continue physical therapy as tolerated. 3. Fever and acute hypoxic respiratory failure likely because of left lower lobe pneumonia. Continue intravenous aztreonam and vancomycin. Follow up final blood culture results. Her fever episode has subsided. 4. Parkinson disease and dementia. Continue her home carbidopa levodopa. She may have been having nightmares intermittently related to levodopa carbidopa use. 5. Acute blood loss anemia related to blood loss during surgery. I will continue her on ferrous sulfate. DISPOSITION: The patient appears to be getting better mentation galeano. If her blood culture remains negative, I would anticipate discharge to long-term snf facility within the next 24 to 48 hours. Plan of care discussed with the patient's family member at bedside. Her questions have been answered. cc: Kendrick Howe MD
[2019-10-16] MEDS: COLACE PO SCH (21:37)
[2019-10-17] MEDS: AZACTAM 1 GM in NS 50 ML IV SCH ×3 (02:56→17:47)
[2019-10-17] MEDS ORDERED: PERIDEX MT SCH (03:43)
[2019-10-17] MEDS: PATIENT'S OWN MED TOP SCH ×2 (04:45→10:00)
[2019-10-17] MEDS: PATIENT'S OWN MED PO SCH ×2 (04:45→10:00)
[2019-10-17] MEDS: VOLTAREN 1% GEL TOP SCH ×4 (04:46→21:50)
[2019-10-17] MEDS: LOVENOX SUBQ SCH (06:27)
[2019-10-17 07:10] LABS: ESTIMATED GFR > 60
[2019-10-17 07:19] LABS: AGAP 11; ALBUMIN 2.6 g/dL (3.5-5.0); ALKALINE PHOSPHATASE 96 U/L (32-104); BUN 12 mg/dL (8-22); CALCIUM 7.5 mg/dL (8.8-10.2); CHLORIDE 103 mmol/L (98-107); COSMO 276; CREATININE 0.5 mg/dL (0.5-0.9); GLUCOSE 103 mg/dL (70-104); GOT 14 U/L (10-30); GPT < 5 U/L (10-36); MAGNESIUM 2.3 mg/dL (1.5-2.7); POTASSIUM 3.5 mmol/L (3.5-5.1); SODIUM 138 mmol/L (136-145); TCO2 24 mmol/L (25-35); TOTAL BILIRUBIN 0.32 mg/dL (0.20-1.00); TOTAL PROTEIN 5.3 g/dL (6.3-8.3)
[2019-10-17 07:52] LABS: BASO# 0.02 X1000 (0.0-0.2); BASO% 0.3 % (0.0-0.8); EOS# 0.31 X1000 (0.0-0.7); EOS% 4.7 % (0.0-10.0); HEMATOCRIT 24.7 % (37.0-47.0); HEMOGLOBIN 7.7 g/dL (12.0-16.0); IMM GRAN# 0.04 X1000 (0.0-0.04); IMM GRAN% 0.6 % (0.0-0.5); LYMPH# 0.81 X1000 (1.2-3.4); LYMPH% 12.2 % (20.5-51.1); MCH 27.2 PG (27-31); MCHC 31.2 g/dL (33-37); MCV 87.3 FL (81-99); MONO# 0.46 X1000 (0.11-0.59); MONO% 6.9 % (1.7-9.3); MPV 9.2 FL (7.4-10.4); NEUT% 75.3 % (42.2-75.2); PLT 259 X1000 (130-400); RBC 2.83 XMIL (4.2-5.4); RDW 14.7 % (11.5-14.5); WBC 6.64 X1000 (4.8-10.8)
[2019-10-17] MEDS: TEARISOL OPH SOLUTION BOTH EYES SCH ×2 (09:58→15:12)
[2019-10-17] MEDS: VANCOMYCIN 1 GM/NS 1 GM/250 ML IVPB IV SCH (09:58)
[2019-10-17] MEDS: SENOKOT PO SCH (09:59)
[2019-10-17] MEDS: SINEMET CR 25/100 PO SCH ×4 (09:59→20:58)
[2019-10-17] MEDS: MIRALAX PO SCH ×2 (09:59→21:03)
[2019-10-17] MEDS: FERROUS SULFATE PO SCH (10:00)
[2019-10-17] MEDS: MILK OF MAGNESIA PO PRN (11:17)
[2019-10-17] MEDS ORDERED: CHLORASEPTIC SPRAY MT PRN (13:22)
[2019-10-17] MEDS ORDERED: DULCOLAX PR ONE (13:24)
--- NOTE | 2019-10-17 14:01 | Diag Imaging Result Doc PS360 ---
EXAM: CHEST-1 VIEW 10/17/2019 HISTORY: left lung pneumonia TECHNIQUE: Erect AP upright portable chest at 1330 COMMENT: There is improvement in the retrocardiac opacity seen in the left lower lobe on 10/15/2019. IMPRESSION: Improving left lower lobe pneumonia. Electronically signed by Jeremy Acevedo 10/17/2019 1:58 PM
[2019-10-17] MEDS: LACTULOSE PO SCH ×2 (15:17→20:58)
[2019-10-17] MEDS: DUONEB (A & A) INH SCH ×3 (16:10→23:23)
--- NOTE | 2019-10-17 16:11 | ORTHOPAEDICS PROGRESS NOTE ---
DATE: 10/17/2019 SUBJECTIVE: Nitza Cazares is an 79-year-old female, status post right TFN. She apparently has developed pneumonia but is doing well from hip. OBJECTIVE: She is a well-developed, well-nourished female. She is cooperative with exam. Her leg is neurovascularly intact. ASSESSMENT: Stable right trochanteric fixation nailing. PLAN: From an orthopedic standpoint she is stable. She can be discharged to rehab once stable medically. cc: Kenney Newell MD
[2019-10-17] MEDS: OFIRMEV 1000 MG/ISOTONIC SOLN 1,000 MG/100 ML BOTTLE IV PRN (20:58)
[2019-10-17] MEDS: COLACE PO SCH (20:58)
[2019-10-17] MEDS ORDERED: TUMS PO PRN (21:23)
--- NOTE | 2019-10-17 22:39 | PROGRESS NOTE ---
DATE: 10/17/2019 SUBJECTIVE: The patient is resting comfortably in bed. She complains of a productive cough and constipation. OBJECTIVE: Vitals: Temperature 98.5 degrees, blood pressure 131/61, heart rate 81, respirations 20, O2 saturation 95% on 2 L nasal cannula. General: This is a chronically ill-appearing elderly female lying in bed in no acute distress. Heart: S1, S2 normal. Regular rate and rhythm. Lungs: Coarse breath sounds bilaterally. Abdomen: Positive bowel sounds. Soft, nontender, nondistended. Extremities: No edema. No cyanosis. Neurologic: The patient is awake and alert. LABORATORY STUDIES: Hemoglobin 7.7, hematocrit 24, platelets 259,000. Sodium 138, potassium 3.5, chloride 103, CO2 24, BUN 12, creatinine 0.5, glucose 96. Chest x-ray shows improvement in the left lower lobe pneumonia. ASSESSMENT AND PLAN: 1. Acute hypoxemic respiratory failure secondary to pneumonia. 2. Left lower lobe pneumonia. Continue with antibiotic therapy, bronchodilator therapy and supplemental oxygen. 3. Status post right long trochanteric fixation nail. Management as per the orthopedic surgeon. 4. Parkinson disease with dementia. Aware. Continue on carbidopa levodopa. 5. Anemia of acute blood loss. The patient's hemoglobin and hematocrit is a little bit lower today. We will continue to monitor closely. 6. Constipation. We will increase the MiraLAX doses twice a day and add lactulose. 7. Deep vein thrombosis prophylaxis. Continue on Lovenox. 8. Disposition. We will plan to discharge the patient to the care home once her pneumonia has improved. cc: Rola Burr MD
[2019-10-18] MEDS: PATIENT'S OWN MED PO SCH ×2 (01:45→11:24)
[2019-10-18] MEDS: PATIENT'S OWN MED TOP SCH ×2 (01:46→11:25)
[2019-10-18] MEDS: AZACTAM 1 GM in NS 50 ML IV SCH ×3 (02:11→17:37)
[2019-10-18] MEDS: DUONEB (A & A) INH SCH ×6 (03:43→23:51)
[2019-10-18] MEDS: LOVENOX SUBQ SCH (05:42)
[2019-10-18 07:03] LABS: ESTIMATED GFR > 60
[2019-10-18 07:09] LABS: AGAP 11; ALB/GLOB RATIO 0.8; ALBUMIN 2.7 g/dL (3.5-5.0); ALKALINE PHOSPHATASE 105 U/L (32-104); BUN 10 mg/dL (8-22); CALCIUM 7.6 mg/dL (8.8-10.2); CHLORIDE 103 mmol/L (98-107); COSMO 276; CREATININE 0.5 mg/dL (0.5-0.9); GLUCOSE 120 mg/dL (70-104); GOT 16 U/L (10-30); GPT < 5 U/L (10-36); MAGNESIUM 2.2 mg/dL (1.5-2.7); SODIUM 138 mmol/L (136-145); TCO2 24 mmol/L (25-35); TOTAL BILIRUBIN 0.41 mg/dL (0.20-1.00); TOTAL PROTEIN 5.9 g/dL (6.3-8.3)
[2019-10-18] MEDS ORDERED: KLOR-CON PO ONE (07:17)
[2019-10-18 07:18] LABS: BASO# 0.03 X1000 (0.0-0.2); BASO% 0.4 % (0.0-0.8); EOS# 0.22 X1000 (0.0-0.7); EOS% 3.1 % (0.0-10.0); HEMATOCRIT 24.8 % (37.0-47.0); HEMOGLOBIN 7.6 g/dL (12.0-16.0); IMM GRAN# 0.05 X1000 (0.0-0.04); IMM GRAN% 0.7 % (0.0-0.5); LYMPH# 0.98 X1000 (1.2-3.4); LYMPH% 13.9 % (20.5-51.1); MCH 26.7 PG (27-31); MCHC 30.6 g/dL (33-37); MONO# 0.44 X1000 (0.11-0.59); MONO% 6.2 % (1.7-9.3); MPV 8.8 FL (7.4-10.4); NEUT# 5.33 X1000 (1.4-6.5); NEUT% 75.7 % (42.2-75.2); PLT 308 X1000 (130-400); RBC 2.85 XMIL (4.2-5.4); RDW 14.7 % (11.5-14.5); WBC 7.05 X1000 (4.8-10.8)
[2019-10-18] MEDS: FERROUS SULFATE PO SCH (09:10)
[2019-10-18] MEDS: MIRALAX PO SCH ×2 (09:10→20:04)
[2019-10-18] MEDS: LACTULOSE PO SCH ×2 (09:10→20:04)
[2019-10-18] MEDS: SENOKOT PO SCH (09:10)
[2019-10-18] MEDS: VOLTAREN 1% GEL TOP SCH ×3 (09:11→17:38)
[2019-10-18] MEDS: SINEMET CR 25/100 PO SCH ×4 (09:12→20:05)
[2019-10-18] MEDS: TEARISOL OPH SOLUTION BOTH EYES SCH ×3 (11:25→20:05)
--- NOTE | 2019-10-18 12:44 | PROGRESS NOTE ---
DATE: 10/18/2019 SUBJECTIVE: The patient is sitting up eating breakfast. She states that she feels much better. She had a bowel movement earlier this morning. OBJECTIVE: Vital Signs: Temperature 97.9 degrees, blood pressure 111/68, heart rate 85, respirations 24, and O2 saturations 100% on the Venturi mask. General: This is a chronically ill- appearing elderly female lying in bed in no acute distress. Heart: S1, S2 normal. Regular rate and rhythm. Lungs: Equal air entry. Diminished breath sounds at the bases. Abdomen: Positive bowel sounds. Soft, nontender, nondistended. Extremities: No edema. No cyanosis. Neurologic: The patient is oriented to person and place. LABORATORY: White blood cell count 7, hemoglobin 7.6, hematocrit 24, and platelets 308,000. Sodium 138, potassium 3, chloride 103, CO2 24, BUN 10, creatinine 0.5, and glucose 120. AST less than 5, ALT 16, and albumin 2.7. ASSESSMENT AND PLAN: 1. Acute hypoxemic respiratory failure. This is likely secondary to pneumonia. Continue with the current treatment regimen. 2. Left lower lobe pneumonia. Slowly improving. Continue on antibiotic therapy, bronchodilator therapy, supplemental oxygen and incentive spirometry. 3. Anemia. The H/H is drifting lower. We will check the patient's iron studies. The nursing staff also reported that the patient has melena. Will start protonix and consult GI. 4. Parkinson disease with dementia. Aware. Continue on carbidopa/levodopa. 5. Status post right long trochanteric fixation of right hip. Management as per the orthopedic surgeon. 6. Constipation. Improved. Continue on the current laxative regimen. 7. Severe protein calorie malnutrition. Will add ensure with each meal. 8. Deep vein thrombosis prophylaxis. The patient is on Lovenox. 9. Disposition. Once the patient is medically stable, she will be discharged to [facility]. cc: Rola Burr MD MTDD
[2019-10-18 13:07] LABS: RETIC% 1.13 % (0.8-2.1); RETIC-HE 19.9 PG (28.2-36.6)
[2019-10-18 13:14] LABS: IRON SATURATION 8 %; TIBC 187 ug/dL; TOTAL IRON 15 ug/dL (49-151); UNBOUND IRON 172 ug/dL (112-346)
[2019-10-18] MEDS: OFIRMEV 1000 MG/ISOTONIC SOLN 1,000 MG/100 ML BOTTLE IV PRN (13:41)
[2019-10-18 13:44] LABS: FERRITIN 93 ng/mL (13-150)
[2019-10-18] MEDS: VANCOMYCIN 1,100 MG in NS 250 ML IV SCH (14:31)
[2019-10-18] MEDS: ULTRAM PO PRN (20:04)
[2019-10-18] MEDS: COLACE PO SCH (20:05)
[2019-10-18] MEDS: PROTONIX PO SCH (20:07)
[2019-10-19] MEDS: PATIENT'S OWN MED PO SCH ×2 (00:54→10:46)
[2019-10-19] MEDS: PATIENT'S OWN MED TOP SCH ×2 (01:19→10:46)
[2019-10-19] MEDS: VOLTAREN 1% GEL TOP SCH ×3 (01:21→13:28)
[2019-10-19] MEDS: AZACTAM 1 GM in NS 50 ML IV SCH ×3 (02:26→10:45)
[2019-10-19] MEDS: DUONEB (A & A) INH SCH ×4 (03:25→15:32)
[2019-10-19] MEDS: OFIRMEV 1000 MG/ISOTONIC SOLN 1,000 MG/100 ML BOTTLE IV PRN (03:35)
--- NOTE | 2019-10-19 06:25 | Diag Imaging Result Doc PS360 ---
EXAM: CHEST-1 VIEW HISTORY: left lower lobe pneumonia TECHNIQUE: Single view COMPARISON: 10/17/2019 FINDINGS: The lungs are well expanded. No cardiomegaly. Infiltrates and/or atelectasis in the left base are less pronounced. No pleural effusions identified. IMPRESSION: Interval improvement Electronically signed by Hermes Darby 10/19/2019 6:23 AM
[2019-10-19 06:49] LABS: BASO# 0.06 X1000 (0.0-0.2); BASO% 0.8 % (0.0-0.8); EOS# 0.31 X1000 (0.0-0.7); EOS% 3.9 % (0.0-10.0); HEMATOCRIT 25.7 % (37.0-47.0); HEMOGLOBIN 7.9 g/dL (12.0-16.0); IMM GRAN# 0.35 X1000 (0.0-0.04); IMM GRAN% 4.4 % (0.0-0.5); LYMPH# 0.87 X1000 (1.2-3.4); LYMPH% 10.9 % (20.5-51.1); MCH 26.7 PG (27-31); MCHC 30.7 g/dL (33-37); MCV 86.8 FL (81-99); MONO# 0.49 X1000 (0.11-0.59); MONO% 6.1 % (1.7-9.3); MPV 8.6 FL (7.4-10.4); NEUT% 73.9 % (42.2-75.2); PLT 378 X1000 (130-400); RBC 2.96 XMIL (4.2-5.4); RDW 14.9 % (11.5-14.5); WBC 7.98 X1000 (4.8-10.8)
[2019-10-19 07:02] LABS: AGAP 10; ALB/GLOB RATIO 0.9; ALKALINE PHOSPHATASE 116 U/L (32-104); BUN 10 mg/dL (8-22); CALCIUM 8.3 mg/dL (8.8-10.2); CHLORIDE 106 mmol/L (98-107); COSMO 281; CREATININE 0.5 mg/dL (0.5-0.9); ESTIMATED GFR > 60; GLUCOSE 116 mg/dL (70-104); GOT 18 U/L (10-30); GPT < 5 U/L (10-36); MAGNESIUM 1.9 mg/dL (1.5-2.7); SODIUM 141 mmol/L (136-145); TCO2 25 mmol/L (25-35); TOTAL BILIRUBIN 0.48 mg/dL (0.20-1.00); TOTAL PROTEIN 6.2 g/dL (6.3-8.3)
[2019-10-19] MEDS: LOVENOX SUBQ SCH (07:43)
[2019-10-19] MEDS: PROTONIX PO SCH (08:23)
[2019-10-19] MEDS: SENOKOT PO SCH (08:23)
[2019-10-19] MEDS: FERROUS SULFATE PO SCH (08:23)
[2019-10-19] MEDS: SINEMET CR 25/100 PO SCH ×2 (08:27→13:28)
[2019-10-19] MEDS: LACTULOSE PO SCH (08:30)
[2019-10-19] MEDS: MIRALAX PO SCH (08:30)
[2019-10-19] MEDS: TEARISOL OPH SOLUTION BOTH EYES SCH ×2 (09:08→15:52)
[2019-10-19 12:05] VITALS: BP 95/54
--- NOTE | 2019-10-19 12:21 | GASTROENTEROLOGY CONSULTATION ---
DATE: 10/19/2019 REASON FOR CONSULTATION: Melena/anemia. HISTORY OF PRESENT ILLNESS: Ms Cazares is an 79-year-old, female with a history of dementia, Alzheimer's, arthritis, and Parkinson's, who had a fall back in June when she was at the [facility] and rehab. She had a fracture of the left femur. The patient was then admitted to [facility] but the family decided not to have the surgery because they felt that it was not severe enough to get the surgery done. and she was sent back to the rehab. Patient had another fall at the rehab facility when she was standing and brushing her teeth, she dropped her partials and was bending down to pick it up and fractured her right hip. She was admitted to [facility] on 10/13/2019. Now the patient has bilateral hip fractures and she was admitted to [facility] for the surgery. She had a surgery on 10/14/2019 of her right intertrochanteric hip fracture. Patient has devon on the right hip. Gastroenterology was consulted yesterday on 10/18/2019 because they noticed that she has been having a anemia. Her hemoglobin and hematocrit has been dropping and nursing staff noticed that her stools were black and tarry. The patient's hemoglobin yesterday was 7.6 and 24.8. Today it has slightly trended upwards at 7.9 and 25.7. PAST MEDICAL HISTORY: Parkinson disease, Lewy body dementia/Alzheimer's, rheumatoid arthritis, osteoarthritis, dysphagia, hyperlipidemia, and old left femur fracture not repaired. SURGICAL HISTORY: Hysterectomy, bilateral cataract surgery. ALLERGIES: The patient is allergic to cephalexin and penicillin. FAMILY HISTORY: No significant GI malignancies. SOCIAL HISTORY: The patient is single. She has no kids. She lives at [facility]. The patient was a past smoker. Occasionally has wine. No illicit drug use. MEDICATIONS: Iron polysaccharide complex 2 capsules 150 mg p.o. daily, MiraLAX 17 grams p.o. daily, sennosides 8.6 mg 1 tablet daily, Carbidopa/levodopa 20/100 mg 1 tablet 4 times a day, diclofenac 1% gel 1 dose topical application, artificial Tears eye drops 15 mL ophthalmic 3 times a day. Rickey/X 0.02 point percent cream 1 dose topical twice a day, vitamin C 50 mg p.o. twice a day, Tylenol 3 650 mg p.o. every 4 hours as needed. REVIEW OF SYSTEMS: As per HPI. Otherwise, 12 point review of system is negative. PHYSICAL EXAMINATION: Vital Signs: Temperature 98.3 degrees, pulse is 81, respirations 20, blood pressure 125/65, oxygen saturation 98% on 2 L nasal cannula. The patient's weight is 100 pounds. BMI is 19.6 kg/m2. General: She is alert, oriented x1, and in no acute distress. History gathered from the niece at the bedside. HEENT: Pale conjunctivae. No icterus. PERRL. Neck: Supple. Lungs: Clear to auscultation. Cardiovascular: Regular rate and rhythm. Abdomen: Soft, nontender, nondistended. Active bowel sounds heard in all 4 quadrants. Extremities: No clubbing. No cyanosis. Pedal pulses 2+ present bilaterally. She has devon on the right hip due surgery. Neurological: Alert and oriented x 2. Nonfocal. Cranial nerves 2-12 grossly intact. LABORATORY DATA: WBCs are 7.98, RBC is 2.96, hemoglobin is 7.9, hematocrit is 25.7, platelet count is 378,000. Sodium 141, potassium 4.0, chloride 106 carbon dioxide 25, anion gap 10, BUN 10, creatinine 0.5, glucose is 116, calcium is 8.3. Magnesium is 1.9. Total bilirubin 0.48, AST 13, ALT 18, AST less than 5, alkaline phosphatase is 116, albumin is 3.0. IMAGING: The patient's x-rays today showed interval improvement. The patient had a CT of head and cervical spine 10/13/2018 and it showed that there was no evidence of acute intracranial disease. Degenerative changes in the cervical spine. Lumbar spine CT showed compression fracture of the upper end plate of L2 of uncertain age. No evidence of spinal stenosis. Her pelvis CT showed bilateral humerus fracture. Hip and pelvis CT showed bilateral femoral fracture. IMPRESSION AND PLAN: Melena Anemia Pneumonia Constipation Respiratory failure Parkinson's Disease Dementia Recent Bilateral Hip surgeries. PLAN: Ms Cazares is an 79-year-old, female with a recent history of left hip and right hip fracture, status post right hip surgery. GI has been consulted for her melena and anemia. The patient's hemoglobin today was 7.9 and 25.7, which is slightly trended upwards. The patient is receiving Protonix 40 mg p.o. twice a day. For anemia, patient is on ferrous sulfate. The patient is also on antibiotics for her pneumonia, Merrem and vancomycin. We will hold off on doing any procedures at this moment till the patient's conditions is stabilized. Continue conservative management for now. We have discussed this with the family and would follow her up as an outpatient. Family has agreed with this plan of care. This plan was discussed with Dr. Bender. Thank you for your consult. Please call us for any further questions or concerns. Dictated by KENNETH Manzanares for Douglas Bender MD cc: Douglas Bender MD I have seen and examined the patient myself and I agree with the above plan of care. I have discussed the above plan of care with the patient and family and all questions were answered. Please call us with any further questions. MTDBroderick
--- NOTE | 2019-10-19 13:20 | DISCHARGE SUMMARY ---
ADMISSION DATE: 10/13/2019 DISCHARGE DATE: 10/19/2019 FINAL DISCHARGE DIAGNOSES: 1. Acute hypoxemic respiratory failure. 2. Left lower lobe pneumonia. 3. Iron deficiency anemia. 4. Parkinson disease with dementia. 5. Status post right long trochanteric hip fixation. 6. Constipation. 7. Severe protein calorie malnutrition. 8. Osteoarthritis. 9. Melena. CONSULTATIONS: 1. Orthopedic consultation with Dr. Newell. 2. GI consultation with Dr. Bender. IMAGIN. CT of the head and cervical spine performed on 10/13/2019 that revealed no acute intracranial disease. 2. CT of the lumbar spine which revealed compression fracture of the upper L2 of uncertain age. 3. CT of the pelvis which revealed bilateral femoral fractures. 4. X-ray of the hip and pelvis which revealed bilateral femoral fractures. 5. Portable chest x-ray that revealed a left lower lobe pneumonia. HOSPITAL COURSE: Ms. Cazares is an 79-year-old female with a history of multiple medical problems, who was sent to the ER after suffering a fall. The patient has arrived to the ER and a pelvic CT was performed that revealed bilateral femoral fractures. Also, the patient was noted to have pneumonia. The patient was admitted to the Hospitalist Service and Orthopedic Surgery was consulted. It was recommended by the orthopedic surgeon that the patient undergo right trochanteric fixation of the fracture. This procedure was performed on 10/14/2019. The patient was also started on broad-spectrum antibiotics. Blood cultures were obtained which remain negative. The patient responded well to the antibiotic therapy. Also, physical therapy was consulted. The patient was noted to be constipated and the patient was started on a laxative regimen with good results. The patient was noted to have a slowly decreasing anemia, so iron studies were checked and the patient was found to be iron deficient. The patient was started on iron supplementation and GI was consulted due to the fact that the patient was noted to have melena. The patient was seen by GI, who recommended proton pump inhibitor therapy and to continue to monitor the hemoglobin and hematocrit closely. If the hemoglobin and hematocrit continue to drop, the patient would need to have an outpatient endoscopy done. The patient continued to improve clinically. The chest x-ray done today showed improvement in the left lower lobe pneumonia. Also, the patient's hemoglobin and hematocrit had improved to 7.9 and 25.7 respectively. At this time, the patient is stable for discharge to [facility]. DISCHARGE MEDICATIONS: 1. Lovenox 40 mg subcutaneous every 24 hours x21 days. 2. Tramadol 25 mg oral every 6 hours p.r.n. for pain. 3. Colace 200 mg oral at bedtime. 4. Levaquin 500 mg oral daily x5 days. 5. Omeprazole 40 mg p.o. twice a day. 6. Acetaminophen 650 mg oral every 6 hours p.r.n. for pain. 7. Iron polysaccharide complex 2 capsules oral twice a day. 8. MiraLAX 17 g oral daily. 9. Senna 1 tab oral daily. 10. Carbidopa/levodopa 1 tab oral 4 times a day. 11. Vitamin C 50 mg oral twice a day. 12. Artificial Tears applied to both eyes 3 times a day. 13. Tretin-X 0.025% cream applied to affected area twice a day. DISCHARGE DIET: Heart healthy diet. ACTIVITY: As tolerated. FOLLOWUP INSTRUCTIONS: The patient will need to follow up with Dr. Newell in 10 days. The patient will need to follow up with her primary care physician in 2 to 3 weeks. cc: Rola Burr MD MTDD
[2019-10-19] MEDS: VANCOMYCIN 1,100 MG in NS 250 ML IV SCH (13:40)
--- NOTE | 2019-10-19 14:04 | ORTHOPAEDICS PROGRESS NOTE ---
DATE: 10/19/2019 SUBJECTIVE: Nitza Cazares is an 79-year-old female with a right TFN on Wednesday. She is in much better spirits today, and is improved as far as her pneumonia is concerned. OBJECTIVE: General: She is a well-developed, well-nourished female. Extremities: Examination of her leg reveals the wounds are clean, dry, and intact. Her leg is neurovascularly intact. There is no sign of DVT. ASSESSMENT: Right intertrochanteric. PLAN: She will likely go to rehab today or tomorrow. She can follow up with me in a couple of weeks, or they can just send x-ray. She can have her devon removed in 10 to 14 days from the day of her surgery. cc: Kenney Newell MD
== END 2019-10-19 16:34 | DRG 480 ==
LOC: SUPCPDRO → ED 10:33 → EDBD 10:33 → EDIPHOLD 13:39 → SUATTDRO 13:39 → 4N 15:57
PROVIDERS: ATTEND Internal Medicine